=== PATIENT | male | born 1965 | race Caucasian/White ===

== ENCOUNTER 2016-04-25 04:34 | Emergency (ER) | payer OTHER ==
--- NOTE | 2016-04-25 05:02 | ED ---
Octavio Morrow Rebecca, scribed for Reymundo Pandey MD on 04/25/16 at 0456 . Abdominal Pain/Male - HPI Summary HPI Summary: Pt is a 50 y/o M who presents to ED c/o L flank pain. Pain began suddenly at 0300 and has been constant since onset. Pain is discrete to the L flank without radiation. Currently characterized as sharp and ranked 8/10. Sx aggravated and alleviated by nothing, unchanged by 2 Advil taken tonight. Denies nausea, fever , chills and dysuria. Prior similar symptoms a few weeks ago (for which Advil ameliorated pain) and also last year. When evaluated for similar pain last year by Dr. Castañeda using US, it did not reveal a kidney stone. - History of Current Complaint Chief Complaint: EDFlankPain Stated Complaint: LEFT FLANK PAIN Hx Obtained From: Patient Onset/Duration: Sudden Onset, Lasting Hours - 2 hours, Still Present Timing: Constant Severity Initially: Moderate Severity Currently: Severe Pain Intensity: 8 Pain Scale Used: 0-10 Numeric Location: Flank - left Radiates: No Character: Sharp Aggravating Factor(s): Nothing Alleviating Factor(s): Nothing Associated Signs And Symptoms: Positive: Negative. Negative: Fever, Urinary Symptoms, Nausea Similar Episode/Dx As:: A few weeks ago and this time last year, no dx - Allergies/Home Medications Allergies/Adverse Reactions: Allergies Allergy/AdvReac Type Severity Reaction Status Date / Time Amoxicillin [From Augmentin] Allergy Diarrhea Verified 12/22/15 10:36 Clavulanic Acid Allergy Diarrhea Verified 12/22/15 10:36 [From Augmentin] PMH/Surg Hx/FS Hx/Imm Hx Endocrine/Hematology History: Denies: Hx Diabetes Cardiovascular History: Denies: Hx Hypertension, Hx Pacemaker/ICD Musculoskeletal History: Reports: Hx Bursitis - MILD LEFT HIP Sensory History: Reports: Hx Contacts or Glasses - READING GLASSES Denies: Hx Hearing Aid Opthamlomology History: Reports: Hx Contacts or Glasses - READING GLASSES Psychiatric History: Denies: Hx Panic Disorder - Surgical History Surgery Procedure, Year, and Place: LEFT ANKLE Hx Anesthesia Reactions: No Infectious Disease History: No Infectious Disease History: Denies: Traveled Outside the [place] in Last 30 Days - Family History Known Family History: Negative: Cardiac Disease - Social History Alcohol Use: None Substance Use Type: Reports: None Hx Tobacco Use: No Smoking Status (MU): Never Smoked Tobacco Review of Systems Negative: Fever, Chills Positive: Abdominal Pain - L flank. Negative: Nausea Negative: dysuria All Other Systems Reviewed And Are Negative: Yes Physical Exam Triage Information Reviewed: Yes Vital Signs On Initial Exam: Initial Vitals Temp Pulse Resp BP Pulse Ox 98 F 44 18 120/86 98 04/25/16 04:36 04/25/16 04:36 04/25/16 04:36 04/25/16 04:36 04/25/16 04:36 Vital Signs Reviewed: Yes Appearance: Positive: Pain Distress - mild discomfort, Thin Skin: Positive: Warm Eyes: Positive: ONEIL ENT: Positive: Hearing grossly normal Neck: Positive: Supple Respiratory/Lung Sounds: Positive: Clear to Auscultation, Breath Sounds Present Cardiovascular: Positive: Normal Abdomen Description: Positive: Nontender, No Organomegaly, Soft. Negative: CVA Tenderness (R), CVA Tenderness (L) Bowel Sounds: Positive: Present Musculoskeletal: Positive: Strength/ROM Intact Neurological: Positive: Sensory/Motor Intact, Alert, Oriented to Person Place, Time Diagnostics - Vital Signs Vital Signs Temp Pulse Resp BP Pulse Ox 04/25/16 04:36 98 F 44 18 120/86 98 - Laboratory Pertinent Lab Values Are: WNL Result Diagrams: 04/25/16 05:10 04/25/16 05:10 Lab Statement: Any lab studies that have been ordered have been reviewed, and results considered in the medical decision making process. Re-Evaluation - Re-Evaluation First Eval Re-Evaluation Time: 06:38 - pain free Change: Improved Abdominal Pain Fem Course/Dx - Course Assessment/Plan: Pt is a 50 y/o M who presents to ED with a CC of L flank pain for 2 hours. Denies nausea, fever, chills or dysuria. - Diagnoses Provider Diagnoses: Flank pain Discharge - Discharge Plan Condition: Improved Disposition: HOME Patient Education Materials: Flank Pain (ED) Referrals: Mike Jones MD [Primary Care Provider] - 1 Day The documentation as recorded by the Octavio boone Rebecca accurately reflects the service I personally performed and the decisions made by , Reymundo Pandey MD.
[2016-04-25] MEDS ORDERED: NS 0.9% 1000 ML* 1,000 ML IV ONE (05:14)
[2016-04-25] MEDS ORDERED: Ketorolac INJ* 30 MG/ML 1 ML VIAL IV PUSH ONE (05:19)
[2016-04-25 05:47] LABS: Hematocrit 39 % (42-52); Hemoglobin 13.4 g/dl (14.0-18.0); Mean Corpuscular HGB Conc 34 g/dl (31-36); Mean Corpuscular Hemoglobin 32 pg (27-31); Mean Corpuscular Volume 95 fL (80-94); Mean Platelet Volume 9 um3 (7.4-10.4); Red Blood Count 4.13 10^6/ul (4.0-5.4); Red Cell Distribution Width 12 % (10.5-15); White Blood Count 5.1 10^3/ul (3.5-10.8)
[2016-04-25 05:49] LABS: Urine Bilirubin Negative (Negative); Urine Glucose Negative (Negative); Urine Nitrite Negative (Negative)
[2016-04-25 06:07] LABS: Albumin 3.8 g/dL (3.2-5.2); BUN/Creatinine Ratio 16.8 (8-20); Calcium 8.9 mg/dL (8.6-10.3); EGFR African American 93.3 (>60); EGFR Non-African American 72.6 (>60); Globulin 2.3 g/dL (2-4); Magnesium 2.2 mg/dL (1.9-2.7); Potassium 3.7 mmol/L (3.5-5.0); Total Bilirubin 1.2 mg/dL (0.2-1.0); Total Protein 6.1 g/dL (6.4-8.9)
[2016-04-25 06:41] VITALS: BP 106/64
== END 2016-04-25 06:53 | disposition home or self-care (01) ==
LOC: ED 04:34
DX: R10.84 Generalized abdominal pain (principal)
CPT/HCPCS: 36415; 80053; 81003; 83690; 83735; 85025; 96374; 99283; J1885

== ENCOUNTER 2016-05-15 16:27 | Emergency (ER) | payer OTHER ==
[2016-05-15] MEDS ORDERED: Ondansetron INJ* 2 MG/ML VIAL IV ONE (16:52)
[2016-05-15] MEDS ORDERED: HYDROmorphone INJ* 1 MG/ML CARPUJECT SYRINGE IV ONE ×2 (16:52→17:52)
[2016-05-15] MEDS ORDERED: NS 0.9% 1000 ML* 2,000 ML IV ONE (16:52)
[2016-05-15 17:30] LABS: ALT 29 U/L (7-52); AST 26 U/L (13-39); Albumin 4.5 g/dL (3.2-5.2); Alkaline Phosphatase 76 U/L (34-104); Anion Gap 11 mmol/L (2-11); BUN/Creatinine Ratio 15.9 (8-20); Blood Urea Nitrogen 17 mg/dL (6-24); C Reactive Protein < 1.00 mg/L (< 5.00); CO2 Carbon Dioxide 24 mmol/L (22-32); Chloride 101 mmol/L (101-111); EGFR African American 93.3 (>60); EGFR Non-African American 72.6 (>60); Globulin 3.2 g/dL (2-4); Glucose 113 mg/dL (70-100); Lipase 14 U/L (11.0-82.0); Magnesium 2.2 mg/dL (1.9-2.7); Potassium 3.8 mmol/L (3.5-5.0); Sodium 136 mmol/L (133-145); Total Protein 7.7 g/dL (6.4-8.9)
[2016-05-15 18:24] LABS: Hematocrit 44 % (42-52); Hemoglobin 14.8 g/dl (14.0-18.0); Mean Corpuscular HGB Conc 34 g/dl (31-36); Mean Corpuscular Hemoglobin 32 pg (27-31); Mean Corpuscular Volume 95 fL (80-94); Mean Platelet Volume 10 um3 (7.4-10.4); Red Blood Count 4.67 10^6/ul (4.0-5.4); Red Cell Distribution Width 13 % (10.5-15); White Blood Count 10.4 10^3/ul (3.5-10.8)
--- NOTE | 2016-05-15 18:53 | RAD ---
Indication: Left flank pain. CT of the abdomen and pelvis was performed after oral contrast administration. No IV contrast was given. Coronal and sagittal reconstructed images were obtained. There is mild left hydronephrosis and hydroureter. There is a calculi in the mid left ureter at approximately the L4-L5 level measuring approximately 6 mm. Perinephric infiltration of fat is noted. Likely cyst is noted in the midportion of left kidney. The right kidney shows no hydronephrosis with likely cyst in the upper pole of the right kidney measuring up to 2.4 cm. Lung bases demonstrate no pleural fluid, nodules or masses. Heart is of normal size without evidence of pericardial effusion. Liver is normal in size. No focal lesions or intrahepatic ductal dilatation is noted. The spleen is normal in size. The pancreas demonstrates no mass or pancreatic duct dilatation. The common duct is not dilated. No adrenal lesions are noted. No retroperitoneal adenopathy is noted. No dilated loops of bowel are noted. The colon is filled with stool. No evidence of abdominal aortic aneurysm is noted. CT of the pelvis demonstrates no free fluid. No hernias are noted. Urinary bladder is unremarkable. IMPRESSION: THERE IS A 6 MM CALCULI IN THE LEFT URETER AT THE L4-L5 LEVEL WITH MILD LEFT HYDRONEPHROSIS AND PERINEPHRIC INFILTRATION OF FAT. BILATERAL RENAL CYSTS ARE NOTED.
[2016-05-15] MEDS ORDERED: Ketorolac INJ* 30 MG/ML 1 ML VIAL IV ONE (19:20)
[2016-05-15 19:25] LABS: Urine Bacteria Absent (Absent); Urine Bilirubin Negative (Negative); Urine Glucose Negative (Negative); Urine Nitrite Negative (Negative)
[2016-05-15] MEDS ORDERED: oxyCODONE/Acetamin 5/325 MG* TAB PO ONE (19:37)
[2016-05-15] MEDS ORDERED: Ondansetron ODT TAB* 4 MG PO ONE (19:37)
--- NOTE | 2016-05-15 19:37 | ED ---
Florentino Morrow Anna, scribed for Maame Johnson MD on 05/15/16 at 1701 . Abdominal Pain/Male - HPI Summary HPI Summary: Patient is a 50 y/o male coming to [facility] presenting with lower left-sided abd pain that began last night and then peaked at 1400 this afternoon. The pain radiates to his back and is exacerbated by eating. After eating today, the pain is at his worst. He experienced emesis, and the pain was somewhat alleviated. Denies previous kidney stone, dysuria. He had intermittent abd pain began a year ago. He had an US at that time that revealed no acute disease. When he was seen in the ED one week ago, a CT revealed no kidney stones. His history is significant for BPH. He was previously given morphine, which helped alleviate the symptoms. - History of Current Complaint Chief Complaint: EDAbdPain Stated Complaint: ABD PAIN Time Seen by Provider: 05/15/16 16:40 Hx Obtained From: Patient, Family/Brim Plater - Accompanied by Pain Intensity: 10 - Allergies/Home Medications Allergies/Adverse Reactions: Allergies Allergy/AdvReac Type Severity Reaction Status Date / Time Amoxicillin [From Augmentin] Allergy Diarrhea Verified 05/15/16 16:33 Clavulanic Acid Allergy Diarrhea Verified 05/15/16 16:33 [From Augmentin] PMH/Surg Hx/FS Hx/Imm Hx Previously Healthy: Yes Endocrine/Hematology History: Denies: Hx Diabetes Cardiovascular History: Denies: Hx Hypertension, Hx Pacemaker/ICD History: Reports: Hx Benign Prostatic Hyperplasia Denies: Hx Dialysis, Hx Renal Disease Musculoskeletal History: Reports: Hx Bursitis - MILD LEFT HIP Sensory History: Reports: Hx Contacts or Glasses - READING GLASSES Denies: Hx Hearing Aid Opthamlomology History: Reports: Hx Contacts or Glasses - READING GLASSES Psychiatric History: Denies: Hx Panic Disorder - Surgical History Surgery Procedure, Year, and Place: LEFT ANKLE Hx Anesthesia Reactions: No Infectious Disease History: No Infectious Disease History: Denies: Traveled Outside the [place] in Last 30 Days - Family History Known Family History: Positive: Other - Hx CVA in mother Negative: Cardiac Disease - Social History Lives: With Family Alcohol Use: None Substance Use Type: Reports: None Hx Tobacco Use: No Smoking Status (MU): Never Smoked Tobacco Review of Systems Positive: Abdominal Pain, Vomiting Negative: dysuria All Other Systems Reviewed And Are Negative: Yes Physical Exam Triage Information Reviewed: Yes Vital Signs On Initial Exam: Initial Vitals Temp Pulse Resp BP Pulse Ox 97.9 F 71 20 139/111 100 05/15/16 16:33 05/15/16 16:33 05/15/16 16:33 05/15/16 16:33 05/15/16 16:33 Vital Signs Reviewed: Yes Appearance: Positive: Well-Appearing, Pain Distress Skin: Positive: Warm, Skin Color Reflects Adequate Perfusion, Dry Eyes: Positive: EOMI, ONEIL ENT: Positive: Pharynx normal, TMs normal Neck: Positive: Supple, Nontender Respiratory/Lung Sounds: Positive: Clear to Auscultation, Breath Sounds Present. Negative: Rales, Rhonchi, Wheezes Cardiovascular: Positive: RRR, Other - no gallops. Negative: Murmur, Rub Abdomen Description: Positive: Soft, Other: - LUQ tenderness, no rebound. Negative: Distended, Guarding, [place]'s [place] Tenderness Bowel Sounds: Positive: Present Musculoskeletal: Positive: Strength/ROM Intact. Negative: Edema Left, Edema Right Neurological: Positive: Sensory/Motor Intact, Alert, Oriented to Person Place, Time, CN Intact II-III - II-XII Psychiatric: Positive: Affect/Mood Appropriate Diagnostics - Vital Signs Vital Signs Temp Pulse Resp BP Pulse Ox 05/15/16 16:33 97.9 F 71 20 139/111 100 - Laboratory Lab Results: Lab Results 05/15/16 05/15/16 05/15/16 Range/Units 16:50 16:50 18:44 WBC 10.4 (3.5-10.8) 10^3/ul RBC 4.67 (4.0-5.4) 10^6/ul Hgb 14.8 (14.0-18.0) g/dl Hct 44 (42-52) % MCV 95 H (80-94) fL MCH 32 H (27-31) pg MCHC 34 (31-36) g/dl RDW 13 (10.5-15) % Plt Count 251 (150-450) 10^3/ul MPV 10 (7.4-10.4) um3 Neut % (Auto) 83.7 H (38-83) % Lymph % (Auto) 11.0 L (25-47) % [place] % (Auto) 4.9 (1-9) % Eos % (Auto) 0.1 (0-6) % Baso % (Auto) 0.3 (0-2) % Absolute Neuts (auto) 8.7 H (1.5-7.7) 10^3/ul Absolute Lymphs (auto) 1.1 (1.0-4.8) 10^3/ul Absolute Monos (auto) 0.5 (0-0.8) 10^3/ul Absolute Eos (auto) 0 (0-0.6) 10^3/ul Absolute Basos (auto) 0 (0-0.2) 10^3/ul Absolute Nucleated RBC 0.01 10^3/ul Nucleated RBC % 0.1 Sodium 136 (133-145) mmol/L Potassium 3.8 (3.5-5.0) mmol/L Chloride 101 (101-111) mmol/L Carbon Dioxide 24 (22-32) mmol/L Anion Gap 11 (2-11) mmol/L BUN 17 (6-24) mg/dL Creatinine 1.07 (0.67-1.17) mg/dL Est GFR ( Amer) 93.3 (>60) Est GFR (Non-Af Amer) 72.6 (>60) BUN/Creatinine Ratio 15.9 (8-20) Glucose 113 H (70-100) mg/dL Calcium 10.0 (8.6-10.3) mg/dL Magnesium 2.2 (1.9-2.7) mg/dL Total Bilirubin 2.10 H (0.2-1.0) mg/dL AST 26 (13-39) U/L ALT 29 (7-52) U/L Alkaline Phosphatase 76 (34-104) U/L C-Reactive Protein < 1.00 (< 5.00) mg/L Total Protein 7.7 (6.4-8.9) g/dL Albumin 4.5 (3.2-5.2) g/dL Globulin 3.2 (2-4) g/dL Albumin/Globulin Ratio 1.4 (1-3) Lipase 14 (11.0-82.0) U/L Urine Color Yellow Urine Appearance Cloudy Urine pH 7.0 (5-9) Ur Specific [place] 1.020 (1.010-1.030) Urine Protein 1+(30 mg/dl) H (Negative) Urine Ketones 1+ H (Negative) Urine Blood 3+ H (Negative) Urine Nitrate Negative (Negative) Urine Bilirubin Negative (Negative) Urine Urobilinogen Negative (Negative) Ur Leukocyte Esterase Negative (Negative) Urine WBC (Auto) Absent (Absent) Urine RBC (Auto) 3+(>10/hpf) H (Absent) Urine Bacteria Absent (Absent) Urine Glucose Negative (Negative) Result Diagrams: 05/15/16 16:50 05/15/16 16:50 Lab Statement: Any lab studies that have been ordered have been reviewed, and results considered in the medical decision making process. - CT CT abd/pel CT Interpretation: Positive (See Comments) CT Interpretation Completed By: Radiologist - IMPRESSION: THERE IS A 6 MM CALCULI IN THE LEFT URETER AT THE L4-L5 LEVEL WITH MILD LEFT HYDRONEPHROSIS AND PERINEPHRIC INFILTRATION OF FAT. BILATERAL RENAL CYSTS ARE NOTED. Re-Evaluation - Re-Evaluation First Eval Re-Evaluation Time: 19:21 Comment: Discussed results and plan of care with patient. Patient agrees with plan. Abdominal Pain Fem Course/Dx - Course Course Of Treatment: 50 yo returns with left flank pain (here previously with the same with out a stone) today a 6mm stone at l4. Pt already sees Dr. Jimenez and is already on alfuzosin which will help pass the stone. will give percocet and zofran at pharmacy , urine does not show infection - Diagnoses Provider Diagnoses: Ureteral calculi Discharge - Discharge Plan Condition: Stable Disposition: HOME Prescriptions: Ondansetron ODT TAB* [Zofran Odt TAB*] 4 mg PO Q6H PRN #20 tab.odt PRN Reason: Nausea oxyCODONE/Acetamin 5/325 MG* [Percocet 5/325 TAB*] 1 tab PO Q4H PRN #20 tab MDD 6 PRN Reason: Pain The documentation as recorded by the Florenitno boone Anna accurately reflects the service I personally performed and the decisions made by me, Maame Johnson MD.
[2016-05-15 20:31] VITALS: BP 113/72
== END 2016-05-15 20:31 | disposition home or self-care (01) ==
LOC: ED 16:27
DX: N13.39 Other hydronephrosis (principal); N20.1 Calculus of ureter; Z88.0 Allergy status to penicillin
CPT/HCPCS: 36415; 74176; 80053; 81003; 81015; 83690; 83735; 85025; 86140; 96360; 96374; 96375; 96376; 99283; A9270-GY; J1170; J1885; J2405

== ENCOUNTER 2019-04-07 15:51 | Emergency (ER) | payer OTHER ==
[2019-04-07 16:24] LABS: INR 1.06 (0.82-1.09)
[2019-04-07 16:38] LABS: Albumin 4.5 g/dL (3.2-5.2); Calcium 9.6 mg/dL (8.6-10.3); Potassium 4.4 mmol/L (3.5-5.0); Total Bilirubin 1.4 mg/dL (0.2-1.0)
[2019-04-07 16:41] LABS: ABS Eosinophils 0.1 10^3/ul (0-0.6); ABS Lymphocytes 1.6 10^3/ul (1.0-4.8); ABS Monocytes 0.5 10^3/ul (0-0.8); ABS Neutrophils 2.9 10^3/ul (1.5-7.7); Eosinophil % 2.1 %; Hematocrit 40 % (42-52); Mean Corpuscular HGB Conc 35 g/dL (31-36); Mean Corpuscular Hemoglobin 34 pg (27-31); Mean Corpuscular Volume 97 fL (80-94); Mean Platelet Volume 8.9 fL (7.4-10.4); Nucleated Red Blood Cells % 0.1; Platelet Count 201 10^3/uL (150-450); Red Blood Count 4.13 10^6 /uL (4.18-5.48); Red Cell Distribution Width 13 % (10-15); Troponin I 0.01 ng/mL (<0.03)
[2019-04-07 16:44] LABS: Albumin/Globulin Ratio 1.8 (1-3); BUN/Creatinine Ratio 18.6 (8-20); EGFR African American 111.7 (>60); EGFR Non-African American 92.3 (>60); Globulin 2.5 g/dL (2-4)
[2019-04-07] MEDS ORDERED: Aspirin 81 mg CHEW TAB* 81 MG TAB.CHEW PO ONE (17:35)
[2019-04-07] MEDS ORDERED: Nitroglycerin TAB 0.4 MG* 0.4 MG TAB SL ONE (17:35)
--- NOTE | 2019-04-07 17:37 | ED ---
HPI Chest Pain - HPI Summary HPI Summary: Pt is a 53 y/o M presenting to the ED with a chief complaint of chest discomfort initially onset 03/30/18 when he was playing a tennis game. He felt incredibly short of breath and like there was a heaviness in his chest, and it has not since resolved. He currently rates it 2-3/10, and notes his blood pressure also was increased. - History of Current Complaint Chief Complaint: EDChestPainROMI Time Seen by Provider: 04/07/19 17:22 Hx Obtained From: Patient Onset/Duration: Started Days Ago, Still Present Timing: Constant, Lasting Days Initial Severity: Mild Current Severity: Mild Pain Intensity: 2 Pain Scale Used: 0-10 Numeric Chest Pain Location: Diffuse Chest Pain Radiates: No Aggravating Factor(s): Exertion Alleviating Factor(s): Nothing Associated Signs and Symptoms: Positive: Chest Pain, Shortness of Breath, Other : - high blood pressure - Allergy/Home Medications Allergies/Adverse Reactions: Allergies Allergy/AdvReac Type Severity Reaction Status Date / Time No Known Allergies Allergy Verified 04/07/19 15:59 Home Medications: Home Medications Alfuzosin ER (NF) [Uroxatral (NF)] 10 mg PO BID 04/07/19 [History Confirmed ] PMH/Surg Hx/FS Hx/Imm Hx Previously Healthy: Yes Endocrine/Hematology History: Denies: Hx Diabetes Cardiovascular History: Denies: Hx Hypertension, Hx Pacemaker/ICD History: Reports: Hx Benign Prostatic Hyperplasia Denies: Hx Dialysis, Hx Renal Disease Musculoskeletal History: Reports: Hx Bursitis - MILD LEFT HIP Sensory History: Reports: Hx Contacts or Glasses - READING GLASSES Denies: Hx Hearing Aid Opthamlomology History: Reports: Hx Contacts or Glasses - READING GLASSES Psychiatric History: Denies: Hx Panic Disorder - Surgical History Surgery Procedure, Year, and Place: Lt ANKLE - FX -. EXCISION CYST -FOREHEAD. dental implants. NAIL REMOVED FROM LEFT THUMB Hx Anesthesia Reactions: No Infectious Disease History: No Infectious Disease History: Denies: Traveled Outside the [place] in Last 30 Days - Family History Known Family History: Positive: Other - Hx CVA in mother Negative: Cardiac Disease - Social History Alcohol Use: None Hx Substance Use: No Substance Use Type: Reports: None Hx Tobacco Use: No Smoking Status (MU): Never Smoked Tobacco Review of Systems Positive: Other - high blood pressure Positive: Chest Pain Positive: Shortness Of Breath All Other Systems Reviewed And Are Negative: Yes Physical Exam - Summary Physical Exam Summary: VITAL SIGNS: Reviewed. GENERAL: Patient is a well-developed and nourished male who is lying comfortable in the stretcher. Patient is not in any acute respiratory distress. HEAD AND FACE: No signs of trauma. No ecchymosis, hematomas or skull depressions. No sinus tenderness.. EYES: PERRLA, EOMI x 2, No injected conjunctiva, no nystagmus. EARS: Hearing grossly intact. Ear canals and tympanic membranes are within normal limits. MOUTH: Oropharynx within normal limits. NECK: Supple, trachea is midline, no adenopathy, no JVD, no carotid bruit, no c- spine tenderness, neck with full ROM. CHEST: Symmetric, no tenderness at palpation. LUNGS: Clear to auscultation bilaterally. No wheezing or crackles. CVS: Regular rate and rhythm, S1 and S2 present, no murmurs or gallops appreciated. ABDOMEN: Soft, non-tender. No signs of distention. No rebound, no guarding, and no masses palpated. Bowel sounds are normal. EXTREMITIES: FROM in all major joints, no edema, no cyanosis or clubbing. NEURO: Alert and oriented x 3. No acute neurological deficits. Speech is normal and follows commands. SKIN: Dry and warm. Triage Information Reviewed: Yes Vital Signs On Initial Exam: Initial Vitals Temp Pulse Resp BP Pulse Ox 97.9 F 44 17 127/82 100 04/07/19 15:57 04/07/19 15:57 04/07/19 15:57 04/07/19 15:57 04/07/19 15:57 Vital Signs Reviewed: Yes Procedures - Sedation Patient Received Moderate/Deep Sedation with Procedure: No Diagnostics - Vital Signs Vital Signs Temp Pulse Resp BP Pulse Ox 04/07/19 15:57 97.9 F 44 17 127/82 100 - Laboratory Lab Results: Lab Results 04/07/19 04/07/19 04/07/19 Range/Units 16:08 16:08 16:08 WBC 5.0 (3.5-10.8) 10^3/uL RBC 4.13 L (4.18-5.48) 10^6 /uL Hgb 14.0 (14.0-18.0) g/dL Hct 40 L (42-52) % MCV 97 H (80-94) fL MCH 34 H (27-31) pg MCHC 35 (31-36) g/dL RDW 13 (10-15) % Plt Count 201 (150-450) 10^3/uL MPV 8.9 (7.4-10.4) fL Neut % (Auto) 56.8 % Lymph % (Auto) 31.0 % [place] % (Auto) 9.6 % Eos % (Auto) 2.1 % Baso % (Auto) 0.5 % Absolute Neuts (auto) 2.9 (1.5-7.7) 10^3/ul Absolute Lymphs (auto) 1.6 (1.0-4.8) 10^3/ul Absolute Monos (auto) 0.5 (0-0.8) 10^3/ul Absolute Eos (auto) 0.1 (0-0.6) 10^3/ul Absolute Basos (auto) 0.0 (0-0.2) 10^3/ul Absolute Nucleated RBC 0.0 10^3/ul Nucleated RBC % 0.1 INR (Anticoag Therapy) 1.06 (0.82-1.09) Sodium 139 (135-145) mmol/L Potassium 4.4 (3.5-5.0) mmol/L Chloride 101 (101-111) mmol/L Carbon Dioxide 33 H (22-32) mmol/L Anion Gap 5 (2-11) mmol/L BUN 16 (6-24) mg/dL Creatinine 0.86 (0.67-1.17) mg/dL Est GFR ( Amer) 111.7 (>60) Est GFR (Non-Af Amer) 92.3 (>60) BUN/Creatinine Ratio 18.6 (8-20) Glucose 100 (70-100) mg/dL Calcium 9.6 (8.6-10.3) mg/dL Total Bilirubin 1.40 H (0.2-1.0) mg/dL AST 26 (13-39) U/L ALT 28 (7-52) U/L Alkaline Phosphatase 64 (34-104) U/L Troponin I 0.01 (<0.03) ng/mL Total Protein 7.0 (6.4-8.9) g/dL Albumin 4.5 (3.2-5.2) g/dL Globulin 2.5 (2-4) g/dL Albumin/Globulin Ratio 1.8 (1-3) Result Diagrams: 04/07/19 16:08 04/07/19 16:08 Lab Statement: Any lab studies that have been ordered have been reviewed, and results considered in the medical decision making process. - Radiology CXR Radiology Interpretation Completed By: ED Physician Summary of Radiographic Findings: No acute process. Pending official radiology report. - EKG 1554 Cardiac Rate: Bradycardia - 49bpm EKG Rhythm: Sinus Bradycardia ST Segment: Normal Ectopy: None Summary of EKG Findings: EKG at 1554 shows sinus bradycardia at 49bpm with no ST elevations and nml axis. Dr. Rich has reviewed and interpreted this EKG. Chest Pain Course/Dx - Course Assessment/Plan: Pt is a 53 y/o M presenting to the ED with a chief complaint of chest discomfort initially onset 03/30/18 when he was playing a tennis game. He felt incredibly short of breath and like there was a heaviness in his chest, and it has not since resolved. He currently rates it 2-3/10, and notes his blood pressure was also increased. Blood work without any significant abnormality except for carbon dioxide of 33 and total bili is 1.4. First troponin is 0.01. Chest x-ray impression: No acute pathology. EKG shows a normal sinus rhythm without any ST elevations. The second troponin is also 0.01. Patient reports that all symptoms have resolved. Patient Heart score is: 1 therefore, low suspicion for CAD. Patient is not hypoxic or tachycardic. Wells criteria 0. Therefore, no suspicion for PE. Patient has no abdominal bruit thus no suspicion for AAA. Patients pain does not radiate to the back and pain has resolved thus low suspicion for aortic dissection. I discussed all the findings and test results with the patient. Patient was instructed to return to the emergency room immediately if any of the symptoms return or worsen. Patient understands and agrees. Plan of care was discussed with the patient and patient understands and agrees. All questions were answered at patient satisfaction. There were no further complaints or concerns. PE before discharge: CVS: S1 and S2 present. No murmurs appreciated. Abdominal exam before discharge: Soft, non-tender. No signs of distention. No rebound no guarding, and no masses palpated. Bowel sounds are normal. Patient is alert and oriented x 3. Patient is hemodynamically stable. - Chest Pain Differential Diagnosis/HQI/PQRI: Acute DC, ACS, Angina, CHF, Chest Wall, GI Disease, Lower Respiratory Infection, Pulmonary Edema - Diagnoses Provider Diagnoses: Chest pain Discharge ED - Sign-Out/Discharge Documenting (check all that apply): Patient Departure - Discharge Plan Condition: Stable Disposition: HOME Patient Education Materials: Chest Pain (ED) Referrals: Mike Jones MD [Primary Care Provider] - Additional Instructions: Please follow up with your primary care provider within the next 1-3 days. Return to the emergency department with any new or worsening symptoms. - Billing Disposition and Condition Condition: STABLE Disposition: Home - Attestation Statements Document Initiated by Wilton: Yes Documenting Scribe: Holly Hemphill Provider For Whom Wilton is Documenting (Include Credential): Michelet Rich MD. Scribe Attestation: Holly Morrow scribed for Michelet Rich MD. on 04/07/19 at 2041. Scribe Documentation Reviewed: Yes Provider Attestation: The documentation as recorded by the Holly boone accurately reflects the service I personally performed and the decisions made by Michelet staton MD. Status of Scribe Document: Viewed
[2019-04-07 20:48] VITALS: BP 114/74
== END 2019-04-07 20:46 | disposition home or self-care (01) ==
LOC: ED 15:51
DX: R07.9 Chest pain, unspecified (principal); N40.0 Benign prostatic hyperplasia without lower urinary tract symptoms; Z79.899 Other long term (current) drug therapy
CPT/HCPCS: 36415; 71046; 80053; 84484; 85025; 85610; 93005; 99283; A9270-GY